=== PATIENT | male | born 1965 | race Caucasian/White ===

== ENCOUNTER 2017-11-16 17:40 | Emergency (ER) | payer OTHER ==
[~2017-11-16] VITALS: Ht 172.7 cm; Wt 90.7 kg
== END 2017-11-16 18:39 | disposition home or self-care (01) ==
LOC: ER 17:40
DX: T23.261A Burn of second degree of back of right hand, initial encounter (principal); X10.2XXA Contact with fats and cooking oils, initial encounter; Y93.89 Activity, other specified; Y92.89 Other specified places as the place of occurrence of the external cause; Y99.8 Other external cause status

== ENCOUNTER 2018-05-16 08:22 | Outpatient (CLI) | payer OTHER | END 2018-05-16 08:30 | disposition home or self-care (01) | LOC: NUCLEAR 08:22 | DX: I25.10 Atherosclerotic heart disease of native coronary artery without angina pectoris (principal); I67.89 Other cerebrovascular disease ==

== ENCOUNTER 2020-04-27 08:43 | Outpatient (CLI) | payer OTHER | END 2020-04-27 09:09 | disposition home or self-care (01) | LOC: NUCLEAR 08:43 | PROVIDERS: ATTEND Internal Medicine | DX: F03.91 Unspecified dementia, unspecified severity, with behavioral disturbance (principal); F02.81 Dementia in other diseases classified elsewhere, unspecified severity, with behavioral disturbance | CPT/HCPCS: 78803; A9557 ==

== ENCOUNTER 2021-04-12 06:46 | Day surgery (SDC) | payer OTHER ==
[~2021-04-12 06:46] MED LIST: CLONAZEPAM0.5 MG PO; GRALISE600 MG PO; LIPIT PO; MIRTAZAPINE7.5 MG PO; SYNTHROID150 MCG PO; VOLTA PO; WELLBUTRIN SR150 MG PO; ZANAF PO
== END 2021-04-12 16:50 | disposition home or self-care (01) ==
LOC: CIR.AMB 06:46
PROVIDERS: ATTEND Specialist
DX: K40.90 Unilateral inguinal hernia, without obstruction or gangrene, not specified as recurrent (principal); D17.5 Benign lipomatous neoplasm of intra-abdominal organs; Z20.822 Contact with and (suspected) exposure to COVID-19

== ENCOUNTER → 2022-06-09 | Outpatient (CLI) | payer OTHER | END | disposition home or self-care (01) | LOC: RAD 13:02 | PROVIDERS: ATTEND Internal Medicine | DX: R78.2 Finding of cocaine in blood (principal) ==